=== PATIENT | male | born 1970 | race Caucasian/White ===

== ENCOUNTER 2020-08-28 03:08 | Emergency (ER) | payer MEDICARE, MEDICAID ==
[2020-08-28] MEDS ORDERED: LITHIUM CARB300 MG PO (03:25)
[2020-08-28] MEDS ORDERED: KEPPRA 500MG500 MG PO ×2 (03:25→04:43)
[2020-08-28] MEDS ORDERED: GLUCOPHAGE1000 MG PO ×2 (03:26→04:43)
[2020-08-28] MEDS ORDERED: NEURONTIN300 MG/CAP PO ×2 (03:26→04:43)
[2020-08-28] MEDS ORDERED: FLOMAX0.4 MG PO (03:26)
[2020-08-28] MEDS ORDERED: AMLODIPINE BES2.5 MG PO (03:27)
[2020-08-28] MEDS ORDERED: TOPROL XL 50MG50 MG PO ×2 (03:27→04:43)
[2020-08-28] MEDS ORDERED: ACAMPROSATE CA333 MG PO (03:31)
[2020-08-28] MEDS ORDERED: LIPITOR20 M2 PO (03:32)
[2020-08-28] MEDS ORDERED: PRILOSEC 20MG20 MG PO (03:33)
[2020-08-28] MEDS ORDERED: ZETIA10 M1 PO (03:33)
[2020-08-28] MEDS ORDERED: ADVAIR DISKUS1 DS2 IH ×2 (03:34→04:43)
[2020-08-28 04:53] LABS: BASO # 0.03 (0.02-0.10); EOS # 0.17 (0.04-0.40); EOS % 2.1 % (0.0-4.0); HEMATOCRIT 40.1 % (42.0-52.0); HEMOGLOBIN 13.3 g/dL (13.5-18.0); LYMPH# 2.27 (1.50-4.00); MEAN CELL VOLUME 89 fl (78-100); MEAN CORPUSCULAR HEMOGLOBIN 29 pg (27-31); MEAN CORPUSCULAR HGB CONC 33 g/dL (33-37); MEAN PLATELET VOLUME 8.7 fl (7.4-10.4); MONO # 0.56 (0.20-0.80); NEU # 4.88 (1.40-6.50); PLATELET COUNT 312 K/mm3 (130-400); RED BLOOD COUNT 4.52 M/mm3 (4.20-5.60); WHITE BLOOD COUNT 7.9 K/mm3 (4.8-10.8)
[2020-08-28 05:01] LABS: ALBUMIN 3.9 g/dL (3.5-5.0); POTASSIUM 3.9 mmol/L (3.5-5.1); SODIUM 141 mmol/L (136-145)
[2020-08-28 05:02] LABS: CALCIUM 8.4 mg/dL (8.3-10.5)
[2020-08-28 05:03] LABS: GLUCOSE 85 mg/dL (75-110)
[2020-08-28 05:04] LABS: CARBON DIOXIDE 18 mmol/L (22-29)
[2020-08-28 05:05] LABS: TOTAL BILIRUBIN 0.2 mg/dL (0.2-1.2)
[2020-08-28 05:06] LABS: ALCOHOL IN-HOUSE 188 mg/dL (<10)
[2020-08-28 05:09] LABS: AST-SGOT 27 U/L (5-34)
[2020-08-28 05:10] LABS: ALT/SGPT 27 U/L (0-55)
[2020-08-28 05:12] LABS: URINE APPEARANCE CLEAR; URINE COLOR YELLOW
[2020-08-28 05:16] LABS: URINE BILIRUBIN NEGATIVE (NEGATIVE); URINE BLOOD NEGATIVE (NEGATIVE); URINE GLUCOSE NEGATIVE (NEGATIVE); URINE KETONE NEGATIVE (NEGATIVE); URINE LEUKOCYTE ESTERASE NEGATIVE (NEGATIVE); URINE NITRATE NEGATIVE (NEGATIVE); URINE PROTEIN(semi-quant) NEGATIVE (NEGATIVE); URINE UROBILINOGEN NORMAL (NORMAL); URINE WBC 0-1 /hpf (0-3)
[2020-08-28 05:17] LABS: URINE MUCUS PRESENT (NOT PRESENT)
[2020-08-28 05:26] LABS: ACETAMINOPHEN < 1 ug/mL
[2020-08-28 13:18] VITALS: BP 149/99
== END 2020-08-28 13:00 ==
LOC: EDSEX 03:08 → ED 03:08
PROVIDERS: Nurse Practitioner Family
DX: F25.9 Schizoaffective disorder, unspecified (principal); F31.9 Bipolar disorder, unspecified; G40.909 Epilepsy, unspecified, not intractable, without status epilepticus; I10 Essential (primary) hypertension; J44.9 Chronic obstructive pulmonary disease, unspecified; E11.9 Type 2 diabetes mellitus without complications; F17.210 Nicotine dependence, cigarettes, uncomplicated; E78.5 Hyperlipidemia, unspecified; Z76.0 Encounter for issue of repeat prescription; Z87.820 Personal history of traumatic brain injury; Z79.84 Long term (current) use of oral hypoglycemic drugs; Z79.899 Other long term (current) drug therapy
CPT/HCPCS: J3411; J3490; J7030